=== PATIENT | male | born 1950 | race Caucasian/White ===

== ENCOUNTER 2016-12-28 09:04 | Emergency (ER) | payer MEDICARE ==
[2016-12-28 09:17] VITALS: BP 134/80
[2016-12-28] MEDS ORDERED: Lidocain 1% EPI 1:100,000 * 30 ML MDV INJ ONE (09:41)
--- NOTE | 2016-12-28 10:24 | UC ---
Rafael Quesada Rebecca, scribed for Shefali Duke MD on 12/28/16 at 0928 . Skin Complaint HPI - HPI Summary HPI Summary: Pt is a 66 y/o M who presents to [facility] c/o abscess on the R upper buttock. Pt first noticed the area 4 days ago, relating it to a pruritic flea bite. He itched it, then it proceeded to become raised "like a lump" after which he became concerned about a tick or spider bite. No drainage. + TTP. no fevers, chills rash, No h/o similar. Not immunocompromised. Pt is not currently in any pain, ranking pain as 0/10. Refuses any pain medication at this time. Sx aggravated and alleviated by nothing. Denies any drainage from the area. Negative fever. Patient's medications reviewed this visit. - History of Current Complaint Chief Complaint: [facility] Time Seen by Provider: 12/28/16 09:26 Stated Complaint: BUG BITE/SKIN ISSUE Hx Obtained From: Patient Onset/Duration: Lasting Days - 4 days ago, Still Present Skin Exposure Onset/Duration: Days Ago - 4 days ago Timing: Constant Current Severity: None Pain Intensity: 0 Pain Scale Used: 0-10 Numeric Location: Other - R Buttock Character: Pruritus, Raised Aggravating: Nothing Alleviating: Nothing Associated Signs & Symptoms: Positive: Negative. Negative: Fever, Drainage - Allergy/Home Medications Allergies/Adverse Reactions: Allergies Allergy/AdvReac Type Severity Reaction Status Date / Time No Known Allergies Allergy Verified 12/28/16 09:18 Review of Systems Constitutional: Negative Skin: Rash - Raised lump on the R buttock Eyes: Negative ENT: Negative Respiratory: Negative Cardiovascular: Negative Gastrointestinal: Negative Genitourinary: Negative Motor: Negative Neurovascular: Negative Musculoskeletal: Negative Neurological: Negative Psychological: Negative All Other Systems Reviewed And Are Negative: Yes PMH/Surg Hx/FS Hx/Imm Hx Previously Healthy: Yes GI/ History: Other Other GI/ History: C. Diff - 8 years ago s/p cholecystectomy - Surgical History Surgical History: Yes Surgery Procedure, Year, and Place: GALL BLAdDER - [facility] [place] 2008 - Family History Known Family History: Positive: Diabetes - Mother - Social History Lives: Alone Alcohol Use: None Substance Use Type: Marijuana Smoking Status (MU): Never Smoked Tobacco Physical Exam Triage Information Reviewed: Yes Appearance: Well-Appearing, No Pain Distress Vital Signs: Initial Vital Signs Temp 102.0 F 12/28/16 09:13 Pulse 97 12/28/16 09:13 Resp 18 12/28/16 09:13 BP 134/80 12/28/16 09:13 Vital Signs Reviewed: Yes Eyes: Negative: Discharge ENT: Positive: Hearing grossly normal Neck exam: Normal Neck: Positive: Supple, Nontender Respiratory: Positive: Normal breath sounds Cardiovascular Exam: Normal Cardiovascular: Positive: RRR, No Murmur Musculoskeletal Exam: Normal Neurological Exam: Normal Neurological: Positive: Alert Psychological Exam: Normal Skin: Positive: Other - right buttock, 2cm lateral to gluteal fold - pt with 2cm raised, red area, indurated, pointing cicumferential erythema - no crepitus Course/Dx - Course Course Of Treatment: Pt with abscess to right buttock. I+D - no packing. wound care discussed. doxy. percocet. return precautions. c dif precautions. Pt copmfotable and in agreement with plan - Diagnoses Provider Diagnoses: abscess Procedures - Procedure Summary Procedure Summary: area prepped with betadine in sterile condition. Instilled 2ml 1% lidocaine with epi using 11 blade made stab incision Little pus expressed - culture taken wound probed - few loculation d/w pt wound care warm soaks doxy Pt tolerated well without complications - Incision and Drainage Site: R buttock Anesthesia: Lidocaine - 1% Lido with Epi - total 2 cm Instrument(s): Scalpel Discharge - Discharge Plan Condition: Stable Disposition: HOME Prescriptions: DOXYcycline CAP(*) [DOXYcycline 100MG CAP(*)] 100 mg PO DAILY #20 cap DOXYcycline CAP(*) [DOXYcycline 100MG CAP(*)] 100 mg PO BID #20 cap oxyCODONE/Acetamin 5/325 MG* [Percocet 5/325 TAB*] 1 - 2 tab PO Q6H PRN #10 tab MDD 8 PRN Reason: Pain Patient Education Materials: Abscess (ED) Referrals: No Primary Care Phys,NOPCP [Primary Care Provider] - [facility] [place] PHYSICIAN REFERRAL [Outside] Additional Instructions: - Keep area clean and dry - okay to apply warm, wet soaks to the area 2 times a day. Cover with a thin layer of antibiotic ointment and a bandaid -take antibiotics as prescribed until gone - Okay to alternate ibuprofen (advil, motrin) and tylenol product (Tylenol or oxycodone) every 3 hours for pain. Do NOT drive or operate machinery while taking Oxycodone - It is recommended you take a probiotic and eat yogurt every day while taking antibiotics to decreased your risk of c dif - return here or go to the emergency department with any questions or concern s - increased pain, fevers, chills, pain, drainage or any other questions or concerns The documentation as recorded by the Rafael atkins Rebecca accurately reflects the service I personally performed and the decisions made by me, Shefali Duke MD.
== END 2016-12-28 10:20 | disposition home or self-care (01) ==
LOC: UCEAST 09:04
DX: L02.31 Cutaneous abscess of buttock (principal)
CPT/HCPCS: 10060; 87070; 87077; 87186; 87205; 87640; 87641; 99212; G0463

== ENCOUNTER 2017-09-11 10:51 | Emergency (ER) | payer MEDICARE ==
--- NOTE | 2017-09-11 13:26 | UC ---
Skin Complaint HPI - HPI Summary HPI Summary: Patient has a abscess on his right buttock. Patient states it is so painful he' s been unable to sleep there has been no drainage from the area and there has been no known injury - History of Current Complaint Chief Complaint: [facility] Time Seen by Provider: 09/11/17 13:25 Stated Complaint: SKIN ISSUE Hx Obtained From: Patient Onset/Duration: Sudden Onset, Lasting Days - 4, Still Present Timing: Constant Onset Severity: Moderate Current Severity: Moderate Pain Intensity: 6 Pain Scale Used: 0-10 Numeric Location: Discrete Character: Pain, Redness Aggravating Factor(s): Touch Alleviating Factor(s): Nothing Associated Signs & Symptoms: Positive: Tenderness - Allergy/Home Medications Allergies/Adverse Reactions: Allergies Allergy/AdvReac Type Severity Reaction Status Date / Time codeine Allergy Intermediate Stomach Verified 09/11/17 11:43 Cramps Review of Systems Constitutional: Negative Skin: Other - Raised red sore area on right buttock Eyes: Negative ENT: Negative Respiratory: Negative Cardiovascular: Negative Gastrointestinal: Negative Genitourinary: Negative Motor: Negative Neurovascular: Negative Musculoskeletal: Negative Neurological: Negative Psychological: Negative Is Patient Immunocompromised?: No All Other Systems Reviewed And Are Negative: Yes PMH/Surg Hx/FS Hx/Imm Hx Previously Healthy: No GI/ History: Other Other GI/ History: 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 - Surgical History Surgical History: Yes Surgery Procedure, Year, and Place: GALL BLAdder - [facility] 2008 - Family History Known Family History: Positive: Unknown, Diabetes - Mother - Social History Occupation: Works From/At Home Lives: With Family Alcohol Use: None Substance Use Type: Marijuana Substance Use Comment - Amount & Last Used: daily Smoking Status (MU): Former Smoker Physical Exam Triage Information Reviewed: Yes Appearance: Well-Appearing, Pain Distress - mild, Thin Vital Signs: Initial Vital Signs Temp 99.5 F 09/11/17 11:44 Pulse 84 09/11/17 11:44 Resp 17 09/11/17 11:44 BP 110/75 09/11/17 11:44 Pulse Ox 99 09/11/17 11:44 Vital Signs Reviewed: Yes Eye Exam: Normal Eyes: Positive: Conjunctiva Clear ENT Exam: Normal ENT: Positive: Normal ENT inspection, Hearing grossly normal. Negative: Nasal drainage, Trismus, Muffled voice, Hoarse voice Dental Exam: Normal Neck exam: Normal Neck: Positive: Supple, Nontender Respiratory Exam: Normal Respiratory: Positive: Chest non-tender, No respiratory distress, No accessory muscle use Cardiovascular Exam: Normal Cardiovascular: Positive: RRR, Pulses Normal, Brisk Capillary Refill Musculoskeletal Exam: Normal Musculoskeletal: Positive: Strength Intact, ROM Intact, No Edema Neurological Exam: Normal Neurological: Positive: Alert, Muscle Tone Normal Psychological Exam: Normal Skin Exam: Normal Skin: Positive: Other - Patient has a 3 inch raised red area on his right buttock. There is no fluctuant center there is no tenting there is no pustula. Course/Dx - Course Course Of Treatment: Patient will be discharged with Bactrim and warm compresses. Patient is advised to return should fluctuant mass developed should erythema or pain worsen patient encouraged to follow with primary care doctor as well as using a probiotic supplement well on antibiotics - Diagnoses Provider Diagnoses: Abscess/cellulitis right buttock Discharge - Sign-Out/Discharge Documenting (check all that apply): Discharge - Discharge Plan Condition: Stable Disposition: HOME Prescriptions: Sulfamethox/Trimethoprim DS* [Bactrim DS 800/160 TAB*] 1 tab PO BID #20 tab Patient Education Materials: Sulfamethoxazole/Trimethoprim (By mouth), Probiotic (By mouth), Abscess (ED), Heat Pack Application (ED) Referrals: [facility] PHYSICIAN REFERRAL [Outside] - 1 Week Rom Simeon MD [Medical Doctor] - 1 Week - Billing Disposition and Condition Condition: STABLE Disposition: HOME
[2017-09-11 13:43] VITALS: BP 122/68
== END 2017-09-11 13:43 | disposition home or self-care (01) ==
LOC: UCEAST 10:51
DX: L02.31 Cutaneous abscess of buttock (principal); L03.317 Cellulitis of buttock; Z88.5 Allergy status to narcotic agent; Z87.891 Personal history of nicotine dependence
CPT/HCPCS: 99212; G0463

== ENCOUNTER 2018-04-29 10:41 | Emergency (ER) | payer MEDICARE ==
[2018-04-29 10:57] VITALS: BP 105/68
--- NOTE | 2018-04-29 11:01 | UC ---
Skin Complaint HPI - HPI Summary HPI Summary: 67 yo male presents with tick bite. He tells me [place] and has dogs that carry ticks often. He has been bitten multiple times recently. About 1 week ago he noticed a tick on his right arm and pulled it off - was not engorged and thinks it was attached to him less than a day. He is concerned that the area might be infected. He denies fever, chills, fatigue, headaches, body aches, joint pain. - History of Current Complaint Chief Complaint: [facility] Time Seen by Provider: 04/29/18 11:01 Stated Complaint: TICK BITE Hx Obtained From: Patient Onset/Duration: Gradual Onset Skin Exposure Onset/Duration: Days Ago Current Severity: None Pain Intensity: 0 Pain Scale Used: 0-10 Numeric - Allergy/Home Medications Allergies/Adverse Reactions: Allergies Allergy/AdvReac Type Severity Reaction Status Date / Time codeine AdvReac Intermediate Stomach Verified 04/29/18 10:49 Cramps Home Medications: Home Medications NK [No Home Medications Reported] 04/29/18 [History Confirmed 04/29/18] Review of Systems All Other Systems Reviewed And Are Negative: Yes Constitutional: Positive: Negative Skin: Positive: Other - Tick bite right arm Respiratory: Positive: Negative Cardiovascular: Positive: Negative Gastrointestinal: Positive: Negative Neurovascular: Positive: Negative Musculoskeletal: Positive: Negative Neurological: Positive: Negative Psychological: Positive: Negative PMH/Surg Hx/FS Hx/Imm Hx - Additional Past Medical History Additional PMH: None - Surgical History Surgical History: Yes Surgery Procedure, Year, and Place: GALL BLAdder - [facility] [place] 2008 - Family History Known Family History: Positive: Unknown, Diabetes - Mother - Social History Occupation: Retired Lives: With Family Alcohol Use: None Substance Use Type: Marijuana Substance Use Comment - Amount & Last Used: occasional Smoking Status (MU): Former Smoker Physical Exam - Summary Physical Exam Summary: GENERAL: NAD. WDWN. No pain distress. SKIN: Right forearm: 5mm area of mild erythema with 2mm central scab. Mild TTP. No warmth, drainage, streaking, or edema. NECK: Supple. Nontender. No lymphadenopathy. CHEST: No accessory muscle use. Breathing comfortably and in no distress. CV: Pulses intact. Cap refill <2seconds NEURO: Alert. PSYCH: Age appropriate behavior. Triage Information Reviewed: Yes Vital Signs: Initial Vital Signs Temp 98.3 F 04/29/18 10:50 Pulse 74 04/29/18 10:50 Resp 16 04/29/18 10:50 BP 105/68 04/29/18 10:50 Pulse Ox 97 04/29/18 10:50 Vital Signs Reviewed: Yes Course/Dx - Course Course Of Treatment: Pt is requesting prophylactic doxycycline treatment. I discussed with him that he is outside the 72 hour window for this to be of any likely benefit, but he elected to take it anyway. The area of tick bite does not appear infected - I advised that he apply neosporin and keep covered with a band-aid until fully healed. 200mg of Doxycycline was given in the clinic. - Diagnoses Provider Diagnoses: Tick bite right arm Discharge - Sign-Out/Discharge Documenting (check all that apply): Patient Departure All imaging exams completed and their final reports reviewed: No Studies - Discharge Plan Condition: Stable Disposition: HOME Patient Education Materials: Lyme Disease (ED), Tick Bite (ED) Referrals: No Primary Care Phys,NOPCP [Primary Care Provider] - Additional Instructions: If you develop a fever, shortness of breath, chest pain, new or worsening symptoms - please call your PCP or go to the ED. - Billing Disposition and Condition Condition: STABLE Disposition: Home
[2018-04-29] MEDS ORDERED: DOXYcycline CAP(*) 100 MG PO ONE (11:05)
== END 2018-04-29 11:15 | disposition home or self-care (01) ==
LOC: UCEAST 10:41
DX: T63.481A Toxic effect of venom of other arthropod, accidental (unintentional), initial encounter (principal); Y92.9 Unspecified place or not applicable
CPT/HCPCS: 99212; A9270-GY; G0463

== ENCOUNTER 2018-12-03 09:28 | Inpatient (IN) | payer MEDICARE ==
--- NOTE | 2018-12-03 09:41 | ED ---
Syncope/Near Syncope - HPI Summary HPI Summary: This patient is a 68 year old M arriving by ambulance to [facility] with a chief complaint of syncope within the last hour. The patient rates the pain 0/10 in severity. Symptoms aggravated by nothing. Symptoms alleviated by nothing. The patient was at home feeding his beagle dogs when he started to spill the dog food throughout house, and then he had fallen. Per EMS, his friend stated he looked like he had a seizure. EMS found him complaining of ABD pain while having diarrhea. Patient had mild AMS and confusion per EMS. Patient reports LOC , as he does not remember the fall, but there is an abrasion on the right temporal area. EMS also states that the patient had a BM at home, which appeared to be diarrhea. No hx of seizures. Former smoker, no EtOH, occasional marijuana use. - History Of Current Complaint Time Seen by Provider: 12/03/18 09:29 Hx Obtained From: Patient, EMS Onset/Duration: Sudden Onset, Resolved Timing: Minutes Context: Witnessed Activity At Onset: Other - feeding his dogs Associated Head Trauma: Yes Aggravating Factor(s): Nothing Alleviating Factor(s): Nothing Associated Signs And Symptoms: AMS - slightly AMS per EMS, Diarrhea, Other - abrasion to the right temporal area, LOC - Allergies/Home Medications Allergies/Adverse Reactions: Allergies Allergy/AdvReac Type Severity Reaction Status Date / Time codeine AdvReac Intermediate Stomach Verified 04/29/18 10:49 Cramps PMH/Surg Hx/FS Hx/Imm Hx Previously Healthy: No Endocrine/Hematology History: Denies: Hx Diabetes, Hx Thyroid Disease Cardiovascular History: Denies: Hx Hypercholesterolemia, Hx Hypertension Respiratory History: Denies: Hx Asthma, Hx Chronic Obstructive Pulmonary Disease (COPD) GI History: Denies: Hx Ulcer Neurological History: Denies: Hx Seizures - Surgical History Surgical History: Yes Surgery Procedure, Year, and Place: GALL BLAdder - [facility] [place] 2008 Infectious Disease History: Reports: Hx Clostridium Difficile Denies: Hx Hepatitis, Hx Human Immunodeficiency Virus (HIV), Traveled Outside the [place] in Last 30 Days - Family History Known Family History: Positive: Diabetes - Mother - Social History Alcohol Use: None Hx Substance Use: Yes Substance Use Type: Reports: Marijuana Substance Use Comment - Amount & Last Used: occasional Hx Tobacco Use: Yes Smoking Status (MU): Former Smoker Review of Systems Positive: Diarrhea Positive: Other - abrasion on right holiness Positive: Syncope - with LOC Psychological: Other - mild AMS and confusion (mostly resolved) All Other Systems Reviewed And Are Negative: Yes Physical Exam - Summary Physical Exam Summary: VITAL SIGNS: Reviewed. GENERAL: Patient is a well-developed and nourished elderly MALE who is lying comfortable in the stretcher. Patient is not in any acute respiratory distress. HEAD AND FACE: Scratch on right side of forehead. No ecchymosis, hematomas or skull depressions. No sinus tenderness. EYES: PERRLA, EOMI x 2, No injected conjunctiva, no nystagmus. EARS: Hearing grossly intact. Ear canals and tympanic membranes are within normal limits. MOUTH: Dry oral mucosa but oropharynx is otherwise within normal limits. NECK: Supple, trachea is midline, no adenopathy, no JVD, no carotid bruit, no c- spine tenderness, neck with full ROM. CHEST: Symmetric, no tenderness at palpation LUNGS: Clear to auscultation bilaterally. No wheezing or crackles. CVS: Regular rate and rhythm, S1 and S2 present, no murmurs or gallops appreciated. ABDOMEN: Soft, non-tender. No signs of distention. No rebound no guarding, and no masses palpated. Bowel sounds are normal. EXTREMITIES: FROM in all major joints, no edema, no cyanosis or clubbing. NEURO: Alert and oriented x 3. No acute neurological deficits. Speech is normal and follows commands. SKIN: Dry and warm GCS: 15 Triage Information Reviewed: Yes Vital Signs Reviewed: Yes - [place] Coma Scale Best Eye Response: 4 - Spontaneous Best Motor Response: 6 - Obeys Commands Best Verbal Response: 5 - Oriented Coma Scale Total: 15 Diagnostics - Laboratory Result Diagrams: 12/03/18 09:47 12/03/18 09:47 Lab Statement: Any lab studies that have been ordered have been reviewed, and results considered in the medical decision making process. - Radiology CXR Radiology Interpretation Completed By: ED Physician, Radiologist Summary of Radiographic Findings: IMPRESSION: NO ACTIVE CARDIOPULMONARY DISEASE. These findings were reviewed by Dr. Melgar. - CT BRAIN CT Interpretation Completed By: Radiologist Summary of CT Findings: IMPRESSION: 1. No evidence for traumatic brain injury or acute intracranial process. 2. Mild involutional change. 3. Small RIGHT temporal region scalp hematoma. These findings were reviewed by Dr. Melgar. - EKG 1022 Cardiac Rate: NL - 63 BPM, Other Rate EKG Rhythm: Sinus Rhythm Summary of EKG Findings: 1022 - Sinus rhythm, no ST evelations, normal axis, 63 BPM Re-Evaluation - Re-Evaluation First Eval Re-Evaluation Time: 11:52 Comment: Patient had seizure-like activity that lasted 1 min 25 seconds. He was given ativan and is now hemodynamically stable Course/Dx Assessment/Plan: This patient is a 68 year old M arriving by ambulance to [facility] with a chief complaint of syncope within the last hour. The patient rates the pain 0/10 in severity. Symptoms aggravated by nothing. Symptoms alleviated by nothing. The patient was at home feeding his beagle dogs when he started to spill the dog food throughout the house, and then he had fallen. Per EMS, his friend stated he looked like he had a seizure. EMS found him complaining of ABD pain while having diarrhea. Patient had mild AMS and confusion per EMS. Patient reports LOC, as he does not remember the fall, but there is an abrasion on the right temporal area. EMS also states that the patient had a BM at home, which appeared to be diarrhea. No hx of seizures. Former smoker, no EtOH, occasional marijuana use. Blood test results do not show any significant abnormalities except for glucose of 146 and lactic acid of 2.2. Head CT impression: No evidence for traumatic brain injury or acute intracranial process. Mild involutional change. Small right temporal region scalp hematoma. CXR Impression: No active cardiopulmonary disease. As the patient was awaiting for the test results, the patient had a tonic-clonic seizure lasting for approximately 1 minute and 25 seconds. The patient was given IV fluids and Ativan. After a while the patient became agitated, therefore, he had to be given another dose of Ativan and Benadryl. I discussed the case with Dr. Lopez from neurology and he is consulting for this patient. He recommends an MRI of the brain, EEG, Keppra 1 g IV and admission to the hospitalist. I discussed the case with Dr. Kirkland who accepted the patient for admission. - Diagnoses Provider Diagnoses: Seizure, Altered mental status - Physician Notifications Discussed Care of Patient With: Georges Lopez Time Discussed With Above Provider: 11:58 Instructed by Provider To: Other - I discussed the patient's case with Dr. Lopez, neurologist. He said to order an MRI, EEG, and to admit the patient. At 1204 I discussed the patient's case with Dr. Kirkland, hospitalist, who agrees to admit the patient. At 1315, Dr. Lopez came to the ED to see the patient. At 1330, Dr. Lopez suggests 1 gram of Keppra. Patient has not see his PCP so he was unable to obtain further history of the patient. - Critical Care Time Critical Care Time: 30-74 min Discharge - Sign-Out/Discharge Documenting (check all that apply): Patient Departure - admit Patient Received Moderate/Deep Sedation with Procedure: No - Discharge Plan Condition: Stable Disposition: ADMITTED TO [facility] - Attestation Statements Document Initiated by Ameeibe: Yes Documenting Scribe: Titi Quintana Provider For Whom Ameeibe is Documenting (Include Credential): Dr. Evin Melgar MD Scribe Attestation: I, Titi Quintana, scribed for Dr. Evin Melgar MD on 12/03/18 at 1529. Status of Scribe Document: Ready
[2018-12-03 09:59] LABS: ABS Eosinophils 0.2 10^3/ul (0-0.6); ABS Lymphocytes 1.2 10^3/ul (1.0-4.8); ABS Monocytes 0.4 10^3/ul (0-0.8); ABS Neutrophils 2.9 10^3/ul (1.5-7.7); Eosinophil % 3.6 %; Hematocrit 46 % (42-52); Hemoglobin 15.5 g/dL (14.0-18.0); Lymphocyte % 25.9 %; Mean Corpuscular HGB Conc 34 g/dL (31-36); Mean Corpuscular Hemoglobin 33 pg (27-31); Mean Corpuscular Volume 98 fL (80-94); Mean Platelet Volume 8.3 fL (7.4-10.4); Nucleated Red Blood Cells % 0.1; Platelet Count 135 10^3/uL (150-450); Red Blood Count 4.69 10^6 /uL (4.18-5.48); Red Cell Distribution Width 13 % (10-15); White Blood Count 4.7 10^3/uL (3.5-10.8)
[2018-12-03 10:17] LABS: ALT 21 U/L (7-52); AST 28 U/L (13-39); Albumin 3.9 g/dL (3.2-5.2); Albumin/Globulin Ratio 1.5 (1-3); Alkaline Phosphatase 68 U/L (34-104); Anion Gap 6 mmol/L (2-11); BUN/Creatinine Ratio 11.4 (8-20); Blood Urea Nitrogen 10 mg/dL (6-24); CO2 Carbon Dioxide 26 mmol/L (22-32); Calcium 9.2 mg/dL (8.6-10.3); Chloride 108 mmol/L (101-111); Creatine Kinase 131 U/L (10-223); EGFR African American 103.9 (>60); EGFR Non-African American 85.9 (>60); Globulin 2.6 g/dL (2-4); Glucose 146 mg/dL (70-100); Magnesium 1.9 mg/dL (1.9-2.7); Potassium 3.6 mmol/L (3.5-5.0); Sodium 140 mmol/L (135-145); Total Protein 6.5 g/dL (6.4-8.9)
[2018-12-03 10:19] LABS: Troponin I 0.01 ng/mL (<0.04)
[2018-12-03 10:21] LABS: BNP 31 pg/mL (<=100)
[2018-12-03 10:42] LABS: Alcohol < 10 mg/dL (<10)
[2018-12-03 10:57] LABS: TSH (Thyroid Stimulating Horm) 1.81 mcIU/mL (0.34-5.60)
[2018-12-03] MEDS ORDERED: Lorazepam PYXIS KEY ONE ×2 (11:51→12:40)
[2018-12-03] MEDS ORDERED: LORazepam INJ* 2 MG/ML 1 ML VIAL ONE ×2 (11:52→12:40)
[2018-12-03] MEDS ORDERED: diPHENhydraMINE IV* 50 MG/ML 1 ml VIAL (BENADRYL) IV ONE (11:54)
[2018-12-03] MEDS: LORazepam INJ* 2 MG/ML 1 ML VIAL IV PUSH ONE ×2 (11:54→12:51)
[2018-12-03] MEDS ORDERED: NS 0.9% 1000 ML** 1,000 ML IV ONE (12:00)
[2018-12-03] MEDS ORDERED: diPHENhydraMINE IV* 50 MG/ML 1 ml VIAL (BENADRYL) ONE (12:39)
[2018-12-03] MEDS ORDERED: Thiamine IV* 100 MG, Folic Acid IV* 1 MG, Multiple Vitamin IV ADULT* 10 ML in NS 0.9% 1... IV ONE (13:13)
[2018-12-03] MEDS ORDERED: levETIRAcetam 1000MG IVPREMIX* 1,000 MG/100 ML BAG IVPB ONE (13:30)
[2018-12-03] MEDS ORDERED: Morphine INJ* 2 MG/ML 1 ML SYRINGE (TWO MG - NEW SYRINGE VERSION) IV PRN (13:43)
[2018-12-03] MEDS ORDERED: Lorazepam PYXIS KEY PRN (13:45)
[2018-12-03] MEDS ORDERED: LORazepam INJ* 2 MG/ML 1 ML VIAL IV PUSH PRN (13:45)
[2018-12-03] MEDS ORDERED: NS 0.9% 1000 ML** 1,000 ML IV SCH (13:45)
--- NOTE | 2018-12-03 13:52 | EEG ---
ELECTROENCEPHALOGRAPHY: DATE OF STUDY: 12/03/18 PATIENT OF: Dr. Melgar. CLINICAL PROBLEM: This is a 68-year-old man being evaluated for new onset of seizures, now in an des arent postictal state. Medicines listed include Ativan, no other medicines noted on chart at this po int. The patient became agitated during this EEG, and the EEG was stopped within a minute of startin g. During this time, there is prominent muscle movement artifact; however, background at times can b e noted and there is no clearcut status epilepticus. IMPRESSION: This is an extremely limited study both in terms of duration and also quality of recordi ng due to patient agitation and the study was impossible to continue; however, there is no clear evid ence for status epilepticus during the study. [id number]/[facility] #: [id number]
--- NOTE | 2018-12-03 14:18 | CONS ---
CONSULTATION REPORT: DATE OF CONSULT: 12/03/18 PATIENT OF: Dr. Melgar and Lakesha Zepeda NP. HISTORY OF PRESENT ILLNESS: This is a 68-year-old man, who does not have ongoing medical care with a primary medical doc, who is on no medicines and has no known health issues, but who today according to the ambulance crew, his friend stated that he looked like he had a seizure. When the EMS came, he was spilling his dog food throughout the house and he had had a fall with a bruise on his right temporal area and had some diarrhea. There is no prior history of seizures. He had a generalized brief convulsion lasting a minute or two in the ER according to Dr. Melgar. Following his seizure in the ER, he has been confused, but has been waking up and has been agitated. PAST MEDICAL HISTORY: He has no known medical history. He is unable to give a history to me at this point. PAST SURGICAL HISTORY: No known surgeries. MEDICATIONS: He is on no medicines. ALLERGIES: He is allergic to CODEINE. FAMILY HISTORY: Not known. SOCIAL HISTORY: He is a former smoker. There is no history of alcohol use known and he has occasional marijuana use. REVIEW OF SYSTEMS: Unable to be obtained. PHYSICAL EXAM: Temperature on admission 97.8, pulse 116, respiratory rate 16, blood pressure 123/76. He will open his eyes and turn towards voice, but is not speaking and has no obvious focal deficits. He is completely uncooperative with exam and he is reaching up at himself and is agitated, and it is difficult to evaluate. The EEG was attempted and was stopped after less than a minute of recording because of severe agitation. Cranial nerves showed no focality. He appears to have symmetric facies. There is no obvious nystagmus. It is hard to fully evaluate. Funduscopic exam is unable to be obtained. His strength was at least 5-/5 bilaterally and was not able to be fully tested, but appeared quite strong. He reacted to touch on either side. Reflexes were unable to be obtained. Chest: Clear. Cardiovascular: Regular rate and rhythm. Abdomen was not able to be tested because of his agitation. There was a right temporal bruise on his scalp. DIAGNOSTIC STUDIES/LAB DATA: His CT scan was reviewed and appeared normal, other than some minor atrophy. Labs include normal CBC, MCV was 98, hematocrit was normal, platelets were 135. His CMP was normal, other than lactic of 2.2. Normal CPK. Normal ammonia. Normal TSH. Normal liver function tests. Toxicology was negative for alcohol. Urine drug screen has not been obtained yet. He has had incontinence of urine. IMPRESSION AND PLAN: Mr. Law has had new onset of seizures. Given the fact that he had a seizure here, most likely event at home was a seizure like his friend described. The etiology of this is unknown. He needs an MRI scan with and without contrast, but he is agitated and in postictal state. Hopefully, he will become less agitated and get an MRI scan without sedation; otherwise, he will need sedation for that. He will need a full EEG. His EEG attempt only lasted less than a minute or so today. Since he has had 2 apparently unprovoked seizures, I would load him with Keppra 1000 mg now and have him on maintenance 750 twice a day at this time. Depending on what further history and information we get, we may modify our game plan. I have asked that he be treated with thiamine, although there is no history of alcohol at this time. I discussed this case with Dr. Kirkland and Dr. Melgar. Thank you for sharing his case. [id number]/[facility] #: [id number] [facility] CENTERBarbara
[2018-12-03] MEDS: levETIRAcetam IV* 250 MG in NS 0.9% 100 ML* 100 ML IVPB SCH ×2 (15:31→15:32)
[2018-12-03] MEDS ORDERED: NS 0.9% IV ONE (15:32)
[2018-12-03] MEDS ORDERED: DEXMEDETOMIDINE IV ONE (15:32)
--- NOTE | 2018-12-03 16:09 | HP ---
CC: Dr. Lopez * HISTORY AND PHYSICAL: DATE OF ADMISSION: 12/03/18 PRIMARY CARE PROVIDER: None. CHIEF COMPLAINT: Seizure. HISTORY OF PRESENT ILLNESS: Maury Law is a 68-year-old male with a past medical history significant for cholecystectomy per his sister who presented in the room "does not go to see a doctor that much" who was noted to have a seizure activity by his roommate today in the morning when feeding his dogs. The patient's sister stated that the roommate stated that patient threw the bowl with dog food across the room, fell backwards and started generalized tonic -clonic seizures. When he was evaluated in the ED, he was initially confused, later on he had another tonic-clonic episode, which resolved after a dose of total of [address] Lopez evaluated the patient by the bedside and also performed an EEG that as per verbal report showed no epileptiform activity. The patient is going to be admitted to the intensive care unit for the diagnosis of intercurrent seizures, likely status epilepticus. The patient' s sister who was present in the room stated that the patient does not go to see a doctor that often and he has a history of cholecystectomy several years ago. PAST MEDICAL HISTORY: Largely unknown. CURRENT MEDICATIONS: None. ALLERGIES: CODEINE. SOCIAL HISTORY: The patient's sister stated that the patient smokes marijuana, but has no history of alcohol or other drug use or tobacco use that the patient' s sister is aware of. 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 His surrogate decision maker is his sister, Britni Dixon, phone number is [phone]. REVIEW OF SYSTEMS: Unobtainable from this confused, combative patient. PHYSICAL EXAMINATION GENERAL: The patient is lying in bed in no acute distress. He does not follow commands or responds to verbal stimuli. When touched, he flays his arm and mumbles incomprehensibly. He resists trying to have an IV placed. VITAL SIGNS: Blood pressure 127/81, heart rate of 112 and regular, respiratory rate 17, oxygen saturation 90% on 2 L of oxygen via nasal canula, and temperature 97.8. HEENT: Head: Atraumatic, normocephalic. Eyes: Pupils are equal and reactive to light and accommodation. Oropharynx is clear. Mucosa moist. NECK: Supple. No JVD. No bruits bilaterally. RESPIRATORY: Clear to auscultation bilaterally. CARDIOVASCULAR: Regular rate and rhythm, no murmur. ABDOMEN: Soft, nontender. Bowel sounds are present in all 4 quadrants EXTREMITIES: There is no edema. Pulses are +2 bilaterally. No clubbing or cyanosis. SKIN: Patient has multiple old appearing scars with brownish discoloration of the skin in bilateral distal lower extremities. NEUROLOGIC: The patient does not cooperate with exam. He is verbal, but mostly mumbles incomprehensibly. He does not follow commands. His face is symmetrical with no evidence of cranial nerve being affected. His motor strength appears to be also symmetrical, but once again, patient does not cooperate with the evaluation. His Babinski's are negative. DIAGNOSTIC STUDIES/LAB DATA: Showed alcohol level below detectible. Lactic acid was mildly elevated at 2.2, likely due to seizure. Sodium 140, potassium 2.6, chloride 108, carbon dioxide 26, BUN 10, creatinine 0.88. Liver function is unremarkable. ammonia 52. TSH 1.8. White blood cell count 4.7, hemoglobin of 15.5, hematocrit of 46 and platelets of 135. Brain CT, impression: No evidence of traumatic brain injury. Mild involutional change. Small, right temporal region skull hematoma. The patient's EKG showed normal sinus rhythm with heart rate of 63 beats per minute. No ST changes. ASSESSMENT AND PLAN: 1. New onset seizures. The patient's altered mentation is likely related to patient being postictal and mildly sedated. He is going to be placed in intensive care unit. As per Dr. Lopez's recommendation, he is going to be bolused with 1000 mg of Keppra and continue 750 mg of Keppra every [address] him on neuro checks and we will attempt to obtain an MRI of the brain, although patient may not be cooperative enough to do that today. 2. DVT prophylaxis. The patient is going to be placed on Lovenox subcutaneously. 3. The patient's code status is full. TIME SPENT: Approximately 60 minutes was spent on evaluation of this patient, more than half that time was spent [id number] with the patient in the ED room. [id number]/[facility] #: [id number] [facility] CENTERBarbara
[2018-12-03] MEDS: Dexmedetomidine* 1,000 MCG in NS 0.9% 250 ML* 240 ML IV SCH (16:56)
[2018-12-03] MEDS ORDERED: Dexmedetomidine* 1,000 MCG in NS 0.9% 250 ML* 240 ML IV SCH ×4 (17:00)
[2018-12-03] MEDS: Enoxaparin(*) 40 MG/0.4 ML SYR SUBCUT SCH (17:24)
[2018-12-03 17:26] LABS: Urine Appearance Cloudy; Urine Bacteria Absent (Absent); Urine Bilirubin Negative (Negative); Urine Blood 3+ (Negative); Urine Color Red; Urine Glucose Negative (Negative); Urine Ketones Trace (Negative); Urine Nitrite Negative (Negative); Urine Protein 2+(100 mg/dL) (Negative); Urine Red Blood Cell 3+(>10/hpf) (Absent); Urine Specific Gravity 1.015 (1.010-1.030); Urine Urobilinogen Negative (Negative); Urine White Blood Cell Absent (Absent)
[2018-12-03 17:41] LABS: Urine Benzodiazepine Screen None Detected (None Detect); Urine Opiates Screen None Detected (None Detect)
[2018-12-04] MEDS ORDERED: NS 0.9% IVPB SCH (02:00)
[2018-12-04] MEDS ORDERED: LEVETIRACETAM IVPB SCH (02:00)
[2018-12-04 06:42] LABS: ABS Eosinophils 0.1 10^3/ul (0-0.6); ABS Lymphocytes 2.3 10^3/ul (1.0-4.8); ABS Monocytes 0.9 10^3/ul (0-0.8); Eosinophil % 0.5 %; Hematocrit 43 % (42-52); Hemoglobin 14.7 g/dL (14.0-18.0); Lymphocyte % 20.2 %; Mean Corpuscular HGB Conc 34 g/dL (31-36); Mean Corpuscular Hemoglobin 33 pg (27-31); Mean Corpuscular Volume 97 fL (80-94); Nucleated Red Blood Cells % 0.1; Platelet Count 149 10^3/uL (150-450); Red Blood Count 4.43 10^6 /uL (4.18-5.48); Red Cell Distribution Width 13 % (10-15); White Blood Count 11.3 10^3/uL (3.5-10.8)
[2018-12-04 07:01] LABS: BUN/Creatinine Ratio 15.7 (8-20); Blood Urea Nitrogen 11 mg/dL (6-24); CO2 Carbon Dioxide 23 mmol/L (22-32); Calcium 8.8 mg/dL (8.6-10.3); Chloride 110 mmol/L (101-111); EGFR African American 135.3 (>60); EGFR Non-African American 111.8 (>60); Glucose 109 mg/dL (70-100); Sodium 138 mmol/L (135-145)
[2018-12-04 07:02] LABS: Anion Gap 5 mmol/L (2-11)
--- NOTE | 2018-12-04 07:58 | PN ---
Subjective Date of Service: 12/04/18 Interval History: pt is still on Precedex gtt, mildly sedated but alert and awake, conversational No c/o pain, SOB Objective Active Medications: Acetaminophen (Tylenol Tab*) 650 mg PO Q4H PRN PRN Reason: FEVER/PAIN Enoxaparin Sodium (Lovenox(*)) 40 mg SUBCUT Q24H [facility] Last Admin: 12/03/18 17:24 Dose: Not Given Thiamine HCl 100 mg/ Sodium (Chloride) 51 mls @ 102 mls/hr IV Q24H LOUISA Levetiracetam 250 mg/ Sodium (Chloride) 102.5 mls @ 410 mls/hr IVPB Q12H [facility] Last Admin: 12/04/18 01:57 Dose: 410 mls/hr Dexmedetomidine HCl 1,000 mcg/ (Sodium Chloride) 250 mls @ 8.22 mls/hr IV Q24H [facility]; Protocol Last Admin: 12/03/18 16:56 Dose: 8.22 mls/hr Lorazepam (Ativan Inj*) 1 mg IV PUSH Q2H PRN PRN Reason: ANXIETY Miscellaneous (Ativan Pyxis Heredia) 1 ea N/A .ATIVAN IV HEREDIA PRN PRN Reason: PYXIS HEREDIA Morphine Sulfate (Morphine Inj (Syringe))*) 2 mg IV Q4H PRN PRN Reason: PAIN - MILD Vital Signs - 8 hr 12/04/18 12/04/18 12/04/18 00:00 01:00 02:00 Temperature Pulse Rate 72 67 Respiratory 16 16 16 Rate Blood Pressure 118/80 121/78 (mmHg) O2 Sat by Pulse 96 96 Oximetry 12/04/18 12/04/18 12/04/18 02:08 03:00 03:09 Temperature 97.5 F Pulse Rate 68 62 Respiratory 16 19 Rate Blood Pressure 131/75 (mmHg) O2 Sat by Pulse 96 97 Oximetry 12/04/18 12/04/18 12/04/18 04:00 05:00 06:00 Temperature Pulse Rate 59 62 Respiratory 26 17 18 Rate Blood Pressure 109/71 116/65 (mmHg) O2 Sat by Pulse 96 97 Oximetry 12/04/18 06:01 Temperature Pulse Rate 63 Respiratory 18 Rate Blood Pressure 122/98 (mmHg) O2 Sat by Pulse 99 Oximetry Oxygen Devices in Use Now: None Appearance: 68 yo F in nAD, aAOx3 Eyes: No Scleral Icterus, PERRLA Ears/Nose/Mouth/Throat: NL Teeth, Lips, Gums, Mucous Membranes Moist Neck: NL Appearance and Movements; NL JVP, Trachea Midline Respiratory: Symmetrical Chest Expansion and Respiratory Effort, Clear to Auscultation Cardiovascular: NL Sounds; No Murmurs; No JVD, RRR Abdominal: NL Sounds; No Tenderness; No Distention Lymphatic: No Cervical Adenopathy Extremities: No Edema, No Clubbing, Cyanosis Skin: No Rash or Ulcers, No Nodules or Sclerosis Neurological: Alert and Oriented x 3, NL Muscle Strength and Tone Result Diagrams: 12/04/18 06:00 12/04/18 06:00 Microbiology and Other Data: Microbiology 12/03/18 14:52 Nasal Screen MRSA (PCR) - Final Nasal Mrsa Not Detected Assess/Plan/Problems-Billing Assessment: 68 yo M with no significant PMhx with new onset seizures - Patient Problems (1) Seizures Comment: new onset Cont Precedex gtt till MRI, then will wean if off Cont Keppra Appreciate neurology consult elevated lactate at admission likely due to seizure (2) DVT prophylaxis Comment: lovenox Status and Disposition: inpatient
[2018-12-04] MEDS: Thiamine TAB* 100 MG TAB PO SCH (09:39)
[2018-12-04] MEDS: levETIRAcetam TAB* 500 MG PO SCH ×2 (11:39→20:47)
[2018-12-04] MEDS ORDERED: Thiamine IV* 100 MG in NS 0.9% 50 ML* 50 ML IV SCH (14:00)
[2018-12-04] MEDS: Acetaminophen TAB* 325 MG PO PRN ×2 (14:20→20:48)
[2018-12-04] MEDS: Enoxaparin(*) 40 MG/0.4 ML SYR SUBCUT SCH (14:24)
[2018-12-04] MEDS: Dexmedetomidine* 1,000 MCG in NS 0.9% 250 ML* 240 ML IV SCH (15:13)
--- NOTE | 2018-12-04 16:24 | PN ---
PROGRESS NOTE: DATE OF VISIT: 12/04/18 PATIENT OF: Dr. Kirkland. HISTORY: This is a 68-year-old man who I am seeing in neurological followup for his new onset of 2 seizures. I spoke to his friend today, who witnessed the first seizure and it occurred out of the blue. He stood up, turned to the right, was confused and then he fell down with generalized convulsion. He had no further seizures since being admitted and being loaded with Keppra. He was on Precedex yesterday for agitation. This has been stopped as of this morning and he is back to his baseline. His friends are there and they say his thinking and his speech is back to normal. MEDICATIONS: Include: 1. Keppra 750 twice a day. 2. Thiamine. PHYSICAL EXAMINATION: Temperature 98.6, pulse 59, respirations 20, blood pressure 92/52. He is alert and oriented with normal speech and comprehension. Cranial nerves II through XII were intact. Motor exam revealed normal tone, strength, coordination, and gait. Chest: Clear. Cardiovascular: Regular rate and rhythm. Abdomen is soft with positive bowel sounds. IMPRESSION AND PLAN: He will be having an MRI scan and EEG and then will be able to go home if he has no further seizures on his Keppra. I discussed with him that often the MRI scan is normal and does not show specific etiology, but sometimes it can show something significant and we need to look for underlying causes. EEG is normal in roughly 50% of people who have ongoing seizures, but an EEG that is abnormal would be further useful information. I discussed in detail that he cannot drive until we report to the DMV and if we reported to the DMV in the near future, they would take his license. After 6 months, if he is seizure-free, the DMV would probably allow him to go back to driving. He does not want to report to the DMV at this point. I discussed with him that if he drives, he will be driving against medical advice and if he hurts somebody, he could be even criminally liable and insurance may not cover any damage or injury he caused and it is my strongest recommendation that he not drive at this point. 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 I discussed with him that even though he is on the Keppra, the Keppra works only in majority of times and the dose may need to be adjusted. He could easily have a breakthrough seizure despite being on seizure medicine, although it does not prove the chances that he will not have further seizures. He is well aware of this at this point. I discussed other seizure precautions with him. He will need a level once he goes home in the next few weeks' time and I should see him in 4 to 5 weeks in followup. Thank you for sharing his case. [id number]/[facility] #: [id number] VESNA
[2018-12-04] MEDS ORDERED: Diazepam TAB(*) 5 MG PO ONE (17:43)
[2018-12-04] MEDS ORDERED: Gadoteridol* (CONTRAST) 279.3 MG/ML 10 ML IV ONE (21:37)
[2018-12-05] MEDS: Acetaminophen TAB* 325 MG PO PRN (02:45)
[2018-12-05] MEDS: levETIRAcetam TAB* 500 MG PO SCH (09:25)
[2018-12-05] MEDS: Thiamine TAB* 100 MG TAB PO SCH (09:26)
[2018-12-05 11:40] VITALS: BP 116/74
--- NOTE | 2018-12-05 12:06 | CONSULT ---
Consult Consult: Subjective: Pt was seen laying in bed. He states that he had fell off a scaffolding and cut his finger on a piece of metal in between his 4th and 5th digits. He states that this occurred one week ago. He denies any erythema around the area. He complains of pain only when the area is palpated or when he makes a full fist. He describes the pain as mild, intermittent and aching. He denies any fevers, chills or night sweats. He denies any discharge. Objective: General: Pt is alert and oriented x3. NAD. Appropriate mood, affect, dress and hygiene. MSK, RUE: Inspection of the right hand reveals no erythema but robyn ecchymosis present between the 4th and 5th digits in the web space on the palmar aspect of the hand. There is no discharge present. Pt has full ROM of the MCP joints of the hand along with PIP and DIP joints. There is less than 2 seconds of capillary refill. Imaging: Xrays of the right hand were obtained and reviewed. no evidence of the foreign body or fracture. Assessment: Hematoma of Right hand between 4th or 5th digits Plan: 1. Continue to monitor the area. Given the pts ROM and no evidence of purulence we feel this will continue to improve with time. 2. Should any erythema develop or should he develop any fevers, chills or night sweats he should call the orthopedic office.
--- NOTE | 2018-12-05 13:18 | DS ---
CC: [facility] - Dr. Kirkpatrick, Dr. Hurley; Dr. Lopez * DISCHARGE SUMMARY: DATE OF ADMISSION: 12/03/18 DATE OF DISCHARGE: 12/05/18 DISPOSITION AT DISCHARGE: Home. CONDITION AT DISCHARGE: Stable. PRIMARY CARE PROVIDER: None. DISCHARGE DIAGNOSIS: New onset seizures. SECONDARY DIAGNOSIS: History of cholecystectomy in the past. MEDICATIONS AT DISCHARGE: Include Keppra 750 mg b.i.d. At discharge, the patient was recommended to check Keppra level in approximately 3 weeks with report to be sent to Dr. Lopez. FOLLOWUP APPOINTMENTS: The patient is recommended to follow up with a primary care provider of his choice and if you are unable to find someone within the next week to follow up with our [facility] and the phone number was given to the patient. The patient also is advised to follow up with Dr. Lopez in approximately 4 weeks. LABORATORY DATA AND STUDIES PERFORMED DURING THE HOSPITAL STAY: Included On , white blood cell count of 11.3, hemoglobin of 14.7, hematocrit of 43, MCV of 97, platelets of 149. Sodium was 138, potassium was hemolyzed and that continue as sample, carbon dioxide 23, BUN 11, creatinine 0.7. Liver function tests were obtained on admission and were unremarkable. Urine drug screen is positive for cannabinoids. Negative for alcohol. Microbiology screen: MRSA nasal swab was negative. Brain MRI obtained with contrast on 12/04/18, impression: "Studies compromised by motion artifact. No evidence of acute intracranial hemorrhage. No intracranial mass or obstructive hydrocephalus." Brain MRI obtained without contrast on 12/04/18, impression: "Normal MRI of the brain. Image quality is limited by motion artifact." Hand x-ray of the right hand obtained to follow up the patient's hematoma between 4th and 5th finger, impression: "Suggestion of a healed fourth metacarpal fracture. No acute fracture or articular malalignment. Mild nonfocal suspicious swelling. No conspicuous foreign body or subcutaneous emphysema." Brain CT obtained on admission, impression: "No evidence of traumatic brain injury or acute intracranial process. Mild involutional change. Small right temporal region hematoma." Portable chest x-ray, impression: "No active cardiopulmonary disease." An EEG was obtained on 12/03/18, impression: "This is extremely limited study both in terms of and also quality of recording due to the patient's agitation and the study was impossible to continue; however, there is no clear evidence of status epilepticus during the study." CONSULTATIONS DURING THE HOSPITAL STAY: Included Dr. Lopez from Neurology. HOSPITALIZATION COURSE: Maury Law is a 68-year-old male who was brought into the hospital in a postictal state after he was noted to have a seizure in the morning on 12/03/18 witnessed by his roommate. For further details of the patient's presentation, please see history and physical. Shortly, after the patient's arrival to the ED, the patient had another generalized tonic-clonic seizure. He received multiple doses of Ativan after he was agitated and confused. He was admitted to the intensive care unit on seizure precautions and Precedex drip. He did rather well on it by the time of the morning. He was able to be weaned off Precedex. His MRI study, CT as well as EEG were grossly unremarkable. Dr. Lopez saw the patient in evaluation and placed the patient on Keppra. Dr. Lopez also recommended for the patient to continue Keppra at discharge. The patient had no longer seizure events throughout his hospital stay and he was pleasant and cooperative, oriented x3. On the day of discharge, he showed me a small hematoma at the base of his right fifth digit that occurred approximately a week prior. The patient stated that he slid down the ladder and that got caught in between his fingers. An x-ray of the hand was obtained to rule out any foreign bodies which was negative. Orthopedic consult was obtained and at this point, assessment was that the patient does have hematoma and he can follow up with orthopedic service if any problems arise, but for the time being it likely will heal spontaneously. As per Dr. Lopez's note, he was already advised not to drive or climb ladders until cleared by Neurology. He is recommended to follow up with Dr. Lopez in approximately 4 weeks. PHYSICAL EXAM: At the time of discharge, blood pressure of 168/71, heart rate of 84 and regular, respiratory rate 15, oxygen saturation 96% on room air, temperature of 98.2. General: The patient is a very pleasant 68-year-old male who is in no acute distress. Alert, awake and oriented x3. HEENT: Head: Atraumatic, normocephalic. Eyes: Pupils are equal and reactive to light and accommodation. Oropharynx is clear. Mucosa moist. Neck: Supple. No JVD. No bruits bilaterally. Cardiovascular: Regular rate and rhythm. No murmur. Respiratory: Clear to auscultation bilaterally. Abdomen: Soft, nontender. Bowel sounds are present in all 4 quadrants. Extremities: There is no edema. Pulses +2 bilaterally. No clubbing or cyanosis. Neuro Evaluation: Speech is clear. Cranial nerves II through XII are grossly intact. Motor strength is 5/5 bilaterally. On evaluation of the skin, the patient has small 1 cm hematoma at the base of the right fifth digit with no area of cellulitis noted. There is no open area of the skin. On psychiatric evaluation, the patient is alert and oriented x3 with no evidence of anxiety or depression. The patient is recommended to follow up with the primary care provider of his choice, but he was given a [facility] phone number in case he was unable to within next 1 to 2 weeks for followup. Please note that this is a short summary of the patient's hospitalization. Please refer to further medical records for details. TIME SPENT: Approximately 35 minutes was spent on the patient's discharge. [id number]/[facility] #: [id number] MTDD
== END 2018-12-05 13:05 | disposition home or self-care (01) | DRG 101 ==
LOC: ED 09:28 → ICU 13:43 → MED 12-05 00:12
PROVIDERS: ADMIT Internal Medicine; ATTEND Internal Medicine
PROC: 4A00X4Z Measurement of Central Nervous Electrical Activity, External Approach (ICD-10-PCS; principal; 2018-12-03)
DX: R56.9 Unspecified convulsions (principal); S00.81XA Abrasion of other part of head, initial encounter; W17.89XA Other fall from one level to another, initial encounter; R40.2362 Coma scale, best motor response, obeys commands, at arrival to emergency department; R40.2142 Coma scale, eyes open, spontaneous, at arrival to emergency department; R40.2252 Coma scale, best verbal response, oriented, at arrival to emergency department; Z88.6 Allergy status to analgesic agent; Z87.891 Personal history of nicotine dependence; Z90.49 Acquired absence of other specified parts of digestive tract; Z86.19 Personal history of other infectious and parasitic diseases; Z83.3 Family history of diabetes mellitus; Y92.009 Unspecified place in unspecified non-institutional (private) residence as the place of occurrence of the external cause
CPT/HCPCS: 36415; 70030; 70450; 70551; 70553; 71045; 80048; 80053; 80307; 80320; 81003; 81015; 82140; 82550; 83605; 83735; 83880; 84443; 84484; 85025; 87641; 93005; 95816; 99285; A9270-GY; A9579; G0480; J1200; J1650; J1953; J2060; J3411

== ENCOUNTER 2019-03-05 10:41 | Emergency (ER) | payer MEDICARE ==
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
[2019-03-05 11:07] VITALS: BP 87/61
--- NOTE | 2019-03-05 11:12 | UC ---
Skin Complaint HPI - HPI Summary HPI Summary: 68-year-old male who got some sort of insect bite on his left inner forearm and is now red and tender with mild swelling. Denies any fever or chills. - History of Current Complaint Chief Complaint: UCSkin Time Seen by Provider: 03/05/19 11:11 Stated Complaint: INSECT BITE Hx Obtained From: Patient Onset/Duration: Gradual Onset Skin Exposure Onset/Duration: Days Ago Timing: Constant Onset Severity: Mild Current Severity: Moderate Pain Intensity: 0 Location: Other - Left inner forearm Character: Redness, Raised, Painful Aggravating Factor(s): Nothing Alleviating Factor(s): Nothing Associated Signs & Symptoms: Positive: Negative - Allergy/Home Medications Allergies/Adverse Reactions: Allergies Allergy/AdvReac Type Severity Reaction Status Date / Time codeine AdvReac Intermediate Stomach Verified 03/05/19 11:08 Cramps PMH/Surg Hx/FS Hx/Imm Hx Previously Healthy: Yes - Surgical History Surgical History: Yes Surgery Procedure, Year, and Place: CHOLECYSECTOMY - [facility] [place] - Family History Known Family History: Positive: Unknown, Diabetes - Mother - Social History Alcohol Use: None Substance Use Type: Marijuana Substance Use Comment - Amount & Last Used: occasional Smoking Status (MU): Former Smoker Review of Systems All Other Systems Reviewed And Are Negative: Yes Skin: Positive: Other - Some sort of insect bite left forearm which is no red mildly raised no drainage. Is Patient Immunocompromised?: No Physical Exam Triage Information Reviewed: Yes Appearance: Well-Appearing, No Pain Distress, Well-Nourished Vital Signs: Initial Vital Signs Temp 98.8 F 03/05/19 11:01 Pulse 68 03/05/19 11:01 Resp 18 03/05/19 11:01 BP 87/61 03/05/19 11:01 Pulse Ox 99 03/05/19 11:01 Vital Signs Reviewed: Yes Musculoskeletal Exam: Normal Neurological Exam: Normal Psychological Exam: Normal Skin: Positive: Other - The patient has what appears to be a developing abscess to the midportion of his left inner forearm with a scabbed area in the middle. This does not appear to be a bull's-eye rash. It is surrounded by approximately 4.0 cm of erythema, no streaking, no epitrochlear lymph node enlargement. Course/Dx - Course Course Of Treatment: Patient is comfortable at this point time and afebrile. He states his tetanus is up-to-date. I'm going to treat him with Bactrim and warm moist compresses and a definite follow-up if the area worsens. It may need to be incised and he is aware went to follow-up with his primary care provider for that if needed. - Diagnoses Provider Diagnosis: Insect bite of forearm, infected Discharge ED - Sign-Out/Discharge Documenting (check all that apply): Patient Departure All imaging exams completed and their final reports reviewed: No Studies - Discharge Plan Condition: Fair Disposition: HOME Prescriptions: Sulfamethox/Trimethoprim DS* [Bactrim DS 800/160 TAB*] 1 tab PO BID 10 Days #20 tab Patient Education Materials: Cellulitis (DC) Referrals: Kaden Tran NP [Primary Care Provider] - Additional Instructions: Warm moist compresses to the area 4-6 times a day 20 minutes each time. Follow- up with your primary care provider if no improvement by Saturday. Go to the emergency room if you have worsening symptoms, swelling of your arm, the redness goes farther up your arm, or you have fever or chills or unable keep the medication down. - Billing Disposition and Condition Condition: FAIR Disposition: Home
== END 2019-03-05 11:28 | disposition home or self-care (01) ==
LOC: UCEAST 10:41
DX: S50.862A Insect bite (nonvenomous) of left forearm, initial encounter (principal); L08.9 Local infection of the skin and subcutaneous tissue, unspecified; W57.XXXA Bitten or stung by nonvenomous insect and other nonvenomous arthropods, initial encounter; Y92.9 Unspecified place or not applicable; Z88.5 Allergy status to narcotic agent; Z87.891 Personal history of nicotine dependence
CPT/HCPCS: 99212; G0463

== ENCOUNTER 2023-07-25 20:50 | Inpatient (IN) ==
[2023-07-25] MEDS ORDERED: Naloxone 0.4 mg VIAL 0.4 mg/ml 1 ml VIAL ONE (20:57)
[2023-07-25] MEDS ORDERED: Succinylcholine 200 mg VIAL 20 mg/ml 10 ml VIAL (200 mg) ONE (21:01)
[2023-07-25] MEDS ORDERED: Rocuronium 50 mg VIAL 10 mg/ml 5 ml VIAL (50 mg) ONE (21:01)
[2023-07-25] MEDS: Etomidate 20 mg/10 ml 2 MG/ML 10 ml VIAL IV ONE (21:08)
[2023-07-25] MEDS ORDERED: Propofol 10 mg/ml 100 ML BTL 1,000 MG/100 ML BTL ONE (21:14)
[2023-07-25] MEDS: Midazolam 5 mg/5 ml VIAL 1 mg/ml 5 ml VIAL (5 mg) IV SLOW PU ONE ×2 (21:15→22:27)
[2023-07-25] MEDS: Propofol 10 mg/ml 100 ML BTL 1,000 MG/100 ML BTL IV SCH (21:30)
[2023-07-25 21:36] LABS: ABS Lymphocytes 2.8 10^3/uL (1.0-4.8); ABS Monocytes 0.6 10^3/uL (0.0-1.1); ABS Neutrophils 3.4 10^3/uL (1.5-7.6); ABS Nucleated RBC 0.01 10^3/ul; Eosinophil % 0.7 %; Hematocrit 44.7 % (38-53); Hemoglobin 14.9 g/dL (13.2-16.3); Lymphocyte % 40.6 %; Mean Corpuscular Hemoglobin 33.7 pg (27-33); Mean Corpuscular Hgb Conc 33.4 g/dL (31-36); Mean Corpuscular Volume 100.9 fL (80-97); Mean Platelet Volume 9.3 fL (7.5-11.2); Nucleated Red Blood Cells % 0.1 %/100WBC (0.0-0.8); Platelet Count 117 10^3/uL (150-450); Red Blood Count 4.44 10^6/uL (4.06-5.63)
[2023-07-25] MEDS ORDERED: Midazolam 5 mg/ml concentrated 5 mg/ml 1 ml VIAL ONE ×2 (21:38→21:44)
[2023-07-25 21:39] LABS: Resp Rate 16
[2023-07-25 21:41] LABS: PCO2 Arterial 63 mmHg (35-45); PO2 Arterial 343 mmHg (80-100)
[2023-07-25] MEDS: Midazolam 10 mg/10 ml VIAL 1 mg/ml 10 ml VIAL (10 mg) IV SLOW PU ONE ×2 (21:52→22:29)
[2023-07-25 21:53] LABS: ALT 19 U/L (7-52); AST 32 U/L (13-39); Albumin 3.9 g/dL (3.2-5.2); Albumin/Globulin Ratio 1.4 (1-3); Alkaline Phosphatase 84 U/L (35-149); Anion Gap 14 mmol/L (2-16); Blood Urea Nitrogen 7 mg/dL (6-24); CO2 Carbon Dioxide 20 mmol/L (22-32); Calcium 8.1 mg/dL (8.6-10.3); Chloride 104 mmol/L (101-111); Creatinine, Serum 0.86 mg/dL (0.67-1.17); Globulin 2.8 g/dL (2-4); Glucose 196 mg/dL (70-100); Potassium 3.5 mmol/L (3.5-5.0); Sodium 138 mmol/L (135-145); Total Bilirubin 0.9 mg/dL (0.2-1.0); Total Protein 6.7 g/dL (6.4-8.9); eGFR CKD-EPI 91.4 (>60)
[2023-07-25] MEDS: Iohexol 350 (CONTRAST) 500 ML MDV IV ONE (22:12)
[2023-07-25 22:22] LABS: Alcohol, S < 13 mg/dL (<13)
[2023-07-25] MEDS: Midazolam PREMIXBAG 1 MG/ML NS 100 ML IV SCH (22:24)
[2023-07-25] MEDS: Succinylcholine 200 mg VIAL 20 mg/ml 10 ml VIAL (200 mg) IV ONE (22:27)
[2023-07-25] MEDS: levETIRAcetam IV 2,500 MG in NS 0.9% 100 ml BAG 100 ML IVPB ONE (23:05)
[2023-07-25 23:18] LABS: Magnesium 2.2 mg/dL (1.9-2.7)
[2023-07-25 23:33] LABS: Urine Benzodiazepine Screen Presumptive Positive (None Detect); Urine Cannabinoids Screen Presumptive Positive (None Detect); Urine Opiates Screen None Detected (None Detect)
[2023-07-26] MEDS: Norepinephrine 4 MG/250mL D5W 4,000 MCG/250 ML BAG IV ONE (00:29)
[2023-07-26] MEDS: Phenylephrine 40 mcg/mL 10mL (400mcg) SYRINGE ONE (00:29)
[2023-07-26] MEDS: Chlorhexidine MOUTHWASH 0.12% 15 ML UDC TOPICAL SCH (00:29)
[2023-07-26] MEDS: Norepinephrine 4 MG/250mL D5W 4,000 MCG/250 ML BAG IV SCH (00:30)
[2023-07-26] MEDS ORDERED: Propofol 10 mg/ml 100 ML BTL 1,000 MG/100 ML BTL IV SCH (01:00)
[2023-07-26] MEDS: Enoxaparin 40 MG/0.4 ML SYR SUBCUT SCH (01:03)
[2023-07-26] MEDS: Propofol 10 mg/ml 100 ML BTL 1,000 MG/100 ML BTL IV SCH (01:03)
[2023-07-26 03:25] LABS: Prolactin 18.9 ng/mL (1.0-20.0)
[2023-07-26] MEDS: Potassium Chloride LIQUID 20 MEQ/15 ML LIQUID PO ONE ×2 (03:35→06:19)
[2023-07-26] MEDS: Lactated Ringers 1000 ml BAG 1,000 ML IV SCH (03:36)
[2023-07-26 04:15] LABS: ABS Lymphocytes 1.7 10^3/uL (1.0-4.8); ABS Monocytes 0.9 10^3/uL (0.0-1.1); ABS Neutrophils 5.4 10^3/uL (1.5-7.6); Eosinophil % 0.2 %; Hematocrit 39.1 % (38-53); Hemoglobin 13.3 g/dL (13.2-16.3); Lymphocyte % 21.3 %; Mean Corpuscular Hemoglobin 33.9 pg (27-33); Mean Corpuscular Hgb Conc 34.2 g/dL (31-36); Mean Corpuscular Volume 99.2 fL (80-97); Red Blood Count 3.94 10^6/uL (4.06-5.63); Red Cell Distribution Width 12.8 % (12-17); White Blood Count 7.9 10^3/uL (3.6-10.2)
[2023-07-26 04:17] LABS: Calcium 7.6 mg/dL (8.6-10.3); Creatinine, Serum 0.7 mg/dL (0.67-1.17); Potassium 3.6 mmol/L (3.5-5.0); eGFR CKD-EPI 97.3 (>60)
[2023-07-26 05:15] LABS: Mean Platelet Volume 8.8 fL (7.5-11.2); Platelet Count 92 10^3/uL (150-450)
[2023-07-26 05:40] LABS: TSH Ultra Thyroid Stim Horm 0.64 mcIU/mL (0.34-5.60)
[2023-07-26] MEDS: levETIRAcetam IV 750 MG in NS 0.9% 100 ml BAG 100 ML IVPB SCH (09:00)
[2023-07-26 15:27] LABS: Urine Appearance Turbid; Urine Bacteria 1+ /HPF (Absent); Urine Bilirubin Negative (Negative); Urine Blood 3+ (Negative); Urine Color Yellow; Urine Glucose Negative (Negative); Urine Ketones 1+ (Negative); Urine Nitrite Negative (Negative); Urine Protein 1+ (>=30 mg/dL) (Negative); Urine Red Blood Cell 3+(>10/hpf) /HPF (0-Trace); Urine Specific Gravity 1.031 (1.002-1.030); Urine Urobilinogen 1+ (Negative); Urine White Blood Cell 2+(11-20/hpf) /HPF (0-Trace); Urine pH 5.5 (5.0-8.0)
[2023-07-26] MEDS: cefTRIAXone 1 gm/50 mL D5W 1 GM/50 ML BAG IV SCH (17:24)
[2023-07-27 04:02] LABS: Calcium 8.1 mg/dL (8.6-10.3); Creatinine, Serum 0.68 mg/dL (0.67-1.17); Magnesium 2.2 mg/dL (1.9-2.7); Potassium 4.2 mmol/L (3.5-5.0); eGFR CKD-EPI 98.1 (>60)
[2023-07-27 04:19] LABS: Hematocrit 39.9 % (38-53); Hemoglobin 13.6 g/dL (13.2-16.3); Mean Corpuscular Hemoglobin 33.9 pg (27-33); Mean Corpuscular Hgb Conc 34.1 g/dL (31-36); Mean Corpuscular Volume 99.3 fL (80-97); Red Blood Count 4.02 10^6/uL (4.06-5.63); Red Cell Distribution Width 12.6 % (12-17); White Blood Count 7.1 10^3/uL (3.6-10.2)
[2023-07-27 06:44] LABS: ABS Monocytes 0.7 10^3/uL (0.0-1.1); ABS Neutrophils 4.6 10^3/uL (1.5-7.6); ABS Nucleated RBC 0.01 10^3/ul; Eosinophil % 0.6 %; Lymphocyte % 26.7 %; Mean Platelet Volume 8.9 fL (7.5-11.2); Nucleated Red Blood Cells % 0.2 %/100WBC (0.0-0.8); Platelet Count 88 10^3/uL (150-450); RBC Morphology Normal (Normal)
[2023-07-27] MEDS: Dexmedetomidine 1,000 MCG in NS 0.9% 250 ml 240 ML IV SCH (08:59)
[2023-07-27] MEDS: Valproic Acid IV 1,500 MG in NS 0.9% 100 ml BAG 100 ML IVPB ONE ×2 (13:33→13:54)
[2023-07-27] MEDS: CALCIUM GLUCONATE 1GM/50ML NS 1 GM/50 ML BAG IV SCH (17:25)
[2023-07-27] MEDS ORDERED: Valproic Acid IV 500 MG in NS 0.9% 100 ml BAG 100 ML IVPB SCH (19:00)
[2023-07-27] MEDS: levETIRAcetam IV 500 MG in NS 0.9% 100 ml BAG 100 ML IVPB SCH (20:13)
[2023-07-27] MEDS: Valproic Acid IV 500 MG in NS 0.9% 100 ml BAG 100 ML IVPB SCH (22:33)
[2023-07-28] MEDS: Haloperidol 5 mg/ml SDV IV/IM 5 MG/ML AMP IV SLOW PU PRN (01:00)
[2023-07-28 04:44] LABS: Anion Gap 6 mmol/L (2-16); Blood Urea Nitrogen 12 mg/dL (6-24); CO2 Carbon Dioxide 26 mmol/L (22-32); Calcium 7.7 mg/dL (8.6-10.3); Chloride 110 mmol/L (101-111); Creatinine, Serum 0.56 mg/dL (0.67-1.17); Glucose 83 mg/dL (70-100); Sodium 142 mmol/L (135-145); eGFR CKD-EPI 104.1 (>60)
[2023-07-28 04:48] LABS: ABS Eosinophils 0.1 10^3/uL (0.0-0.5); ABS Lymphocytes 1.5 10^3/uL (1.0-4.8); ABS Monocytes 0.4 10^3/uL (0.0-1.1); ABS Neutrophils 3.3 10^3/uL (1.5-7.6); ABS Nucleated RBC 0.01 10^3/ul; Eosinophil % 1.1 %; Hematocrit 37.5 % (38-53); Hemoglobin 12.9 g/dL (13.2-16.3); Lymphocyte % 28.4 %; Mean Corpuscular Hemoglobin 33.8 pg (27-33); Mean Corpuscular Hgb Conc 34.4 g/dL (31-36); Mean Corpuscular Volume 98.4 fL (80-97); Mean Platelet Volume 9.8 fL (7.5-11.2); Nucleated Red Blood Cells % 0.1 %/100WBC (0.0-0.8); Platelet Count 94 10^3/uL (150-450); Red Blood Count 3.81 10^6/uL (4.06-5.63); Red Cell Distribution Width 12.3 % (12-17); White Blood Count 5.4 10^3/uL (3.6-10.2)
[2023-07-28 06:52] LABS: Potassium Redraw 3.7 mmol/L (3.5-5.0)
[2023-07-28 07:34] LABS: Magnesium 1.9 mg/dL (1.9-2.7)
[2023-07-29 05:43] LABS: ABS Lymphocytes 0.9 10^3/uL (1.0-4.8); ABS Monocytes 0.6 10^3/uL (0.0-1.1); ABS Neutrophils 3.6 10^3/uL (1.5-7.6); Eosinophil % 0.2 %; Lymphocyte % 18.2 %; Mean Corpuscular Hemoglobin 34.1 pg (27-33); Mean Corpuscular Hgb Conc 35.1 g/dL (31-36); Mean Corpuscular Volume 97.3 fL (80-97); Mean Platelet Volume 8.6 fL (7.5-11.2); Platelet Count 100 10^3/uL (150-450); Red Cell Distribution Width 12.5 % (12-17); White Blood Count 5.2 10^3/uL (3.6-10.2)
[2023-07-29 06:01] LABS: Calcium 8.2 mg/dL (8.6-10.3); Creatinine, Serum 0.66 mg/dL (0.67-1.17); Potassium 3.3 mmol/L (3.5-5.0)
[2023-07-29] MEDS: KCL 20 MEQ/100 ML IVPREMIX 20 MEQ/100 ML BAG IV SCH (08:37)
[2023-07-29 14:14] VITALS: BP 148/89
== END 2023-07-29 15:40 | disposition home or self-care (01) | DRG 100 ==
LOC: ED 20:50 → EDHOLD 22:59 → ICU 23:55
PROVIDERS: ADMIT Student in an Organized Health Care Education/Training Program; ATTEND Student in an Organized Health Care Education/Training Program